=== PATIENT | male | born 1955 | race Caucasian/White ===

== ENCOUNTER → 2023-08-13 08:29 | Outpatient (REF) | payer OTHER, SELFPAY | LOC: RAD 08:29 | PROVIDERS: ATTENDING PHYSICIAN Family Medicine | DX: M54.16 Radiculopathy, lumbar region (principal) | CPT/HCPCS: 72110 ==

== ENCOUNTER → 2023-08-27 07:43 | Outpatient (REF) | payer OTHER, SELFPAY | LOC: MRI 3T 07:43 | PROVIDERS: ATTENDING PHYSICIAN Family Medicine | DX: M54.16 Radiculopathy, lumbar region (principal) | CPT/HCPCS: 72148 ==

== ENCOUNTER → 2024-07-27 07:09 | Outpatient (REF) | payer OTHER, SELFPAY | LOC: RAD 07:09 | PROVIDERS: ATTENDING PHYSICIAN Internal Medicine Cardiovascular Disease; FAMILY PHYSICIAN Family Medicine | DX: I25.10 Atherosclerotic heart disease of native coronary artery without angina pectoris (principal) | CPT/HCPCS: 93922; 93925 ==

== ENCOUNTER → 2024-08-03 14:40 | Outpatient (REF) | payer OTHER, SELFPAY | LOC: RCS 14:40 | PROVIDERS: ATTENDING PHYSICIAN Internal Medicine Cardiovascular Disease; FAMILY PHYSICIAN Family Medicine | DX: I25.10 Atherosclerotic heart disease of native coronary artery without angina pectoris (principal) | CPT/HCPCS: 93306 ==

== ENCOUNTER → 2024-08-06 07:18 | Outpatient (REF) | payer OTHER, SELFPAY | LOC: HWRCS 07:18 | PROVIDERS: ATTENDING PHYSICIAN Internal Medicine Cardiovascular Disease; FAMILY PHYSICIAN Family Medicine | DX: I25.10 Atherosclerotic heart disease of native coronary artery without angina pectoris (principal) | CPT/HCPCS: 78452; 93017; A9500; J2785 ==

== ENCOUNTER → 2024-08-24 13:34 | Outpatient (REF) | payer OTHER, SELFPAY | LOC: RCS 13:34 | PROVIDERS: ATTENDING PHYSICIAN Internal Medicine Cardiovascular Disease; FAMILY PHYSICIAN Family Medicine | DX: I25.10 Atherosclerotic heart disease of native coronary artery without angina pectoris (principal) | CPT/HCPCS: 93017 ==

== ENCOUNTER 2024-09-04 09:36 | Day surgery (SDC) | payer OTHER, SELFPAY ==
[2024-09-04] VITALS (16 sets, daily range): BP systolic 124–184; BP diastolic 53–84; BMI 33.3
--- NOTE | 2024-09-04 08:23 | ITS.CL.CATH ---
Neuropsychology Director - Catheterization
Cardiac Catheterization
Procedure Report:
LEFT HEART CATHETERIZATION
Date of Procedure: September 04, 2024
Referring: Johny Galvan
PROCEDURES:
1. Left heart catheterization, coronary angiogram.
2. Selective graft angiography.
3. Ultrasound-guided access
4. Successful percutaneous coronary artery intervention of a hazy 80% ostial to proximal saphenous vein graft stenosis with one 2.75 x 18 mm Medtronic Sophia drug-eluting stent, postdilated with a 2.75 x 12 mm NC balloon at 16 thalia with an excellent
angiographic result.
INDICATION: Abnormal stress test
ACCESS: Bilateral radial arteries, 6 Tristanian sheath, under ultrasound guidance
Ultrasound was utilized for vascular access. The right and left radial artery was visualized under ultrasound, and the vessel was patent and pulsatile. An image was stored permanently in the patient's medical record. Under direct ultrasound
guidance, a 6 Tristanian sheath was inserted into the arteries using a micropuncture kit through a modified Seldinger technique.
HEMODYNAMICS : (mmHg)
AO (s/d) : 124/62
LV (s/d) : 124/7
LVEDP : 21
CORONARY FINDINGS
Dominance: Right
LEFT MAIN: Normal
LEFT ANTERIOR DESCENDING: The LAD arises normally from the left main and runs in the anterior intraventricular groove. The proximal LAD has a subtotal occlusion with mid to distal LAD being filled by a patent BARKSDALE graft.. The mid LAD beyond the
BARKSDALE anastomosis has a 60-70% stenosis
RAMUS: The ramus intermedius branch is a medium caliber vessel with a 80% proximal stenosis which is new compared to prior heart catheterization. Staged PCI will be planned.
CIRCUMFLEX: The first obtuse marginal branch is 100% occluded but is the recipient of the SVG-OM. The SVG-OM1 has an 80% stenosis in its midportion.
RIGHT CORONARY ARTERY: The right coronary artery is 100% occluded proximally with the distal vessel filling via a ANOOP-RCA.
GRAFT ANATOMY:
1. BARKSDALE graft to LAD: The graft is widely patent. [place] mid LAD beyond the touchdown has a stable smooth 50-60% stable lesion just distal to the graft touchdown. Distal LAD has a smooth eccentric 40 to 50% stenosis.
2. ANOOP to RCA: The ANOOP graft has a bend right at the takeoff not allowing the SOFIYA catheter to sit into the os despite using right radial access. It is widely patent.
3. Saphenous vein graft to OM: There is a saphenous vein graft to a medium caliber obtuse marginal branch. There is a hazy 80% stenosis in the ostial to proximal portion. Mid LAD stent is widely patent. The distal portion of the SVG was mildly
degenerative just proximal to the touchdown filling a medium caliber obtuse marginal branch. We proceeded with intervention of the hazy 80% stenosis with details below.
CORONARY (SVG) INTERVENTION: Decision was made to proceed with intervention percutaneously to the hazy 80% stenosis in the ostial to proximal portion of the saphenous vein graft to the OM. Additional heparin was given to maintain a therapeutic ACT
throughout the case. We initially attempted selectively engaging with a 6 Tristanian AL 0.75 guide catheter. Unfortunately given the takeoff angle, despite multiple manipulations, we could not get the guide to seat well. We did attempt wiring the
lesion in the hopes that we could get the guide seated well however in the midst of getting good guide position to be able to lay out the lesion well, the wire and the guide prolapsed out of the vessel. We tried subsequently multiple different
guides including a 6 Tristanian JR 4, AR 1, hockey-stick with failure to selectively engage. At this point we decided to bring back the AL 0.75 guide and successfully wired with a 190 cm 0.014 BMW wire which was parked in the distal graft. We
attempted to bring in a 5.0 spider distal embolic protection device however given the ostial lesion we could not successfully advance this despite multiple attempts. At this point we decided to abort using a distal embolic protection device in the
setting of an ostial/proximal occlusive lesion. We predilated the lesion using a 2.0 x 10 mm semi-compliant balloon at 12 thalia. Subsequently we further predilated the lesion with a 2.75 x 10 mm semi-compliant balloon with good expansion. We
subsequently placed a 2.75 x 18 mm Medtronic Sophia drug-eluting stent. Given previously the mid portion of the graft had allowed for a 3.5 stent, we attempted to bring in a IVUS Traverse eye catheter to make sure that our stent was appropriately sized
before deciding on a postdilatation balloon however given poor guide support and the angulation of the graft, we could not successfully advance an IVUS catheter. We postdilated using a 2.75 x 12 mm NC balloon at 16 thalia with an excellent
angiographic result. The patient was loaded with 600 mg of Plavix at the end of the case. He tolerated the procedure well with no acute complications.
SEDATION: 153 minutes of procedural sedation was utilized. An independent medical coder was present to assist with and help manage the patient's level of consciousness and physiologic status.
RADIATION SUMMARY: Fluoro Time (min): 36.3, Dose (mGy): 2389.96, DAP (Gy.cm2) : 185.17
Closure Device: Vascular band over bilateral radial arteries, 10 cc of air.
CONCLUSIONS
1. Successful percutaneous coronary artery intervention of a hazy 80% ostial to proximal saphenous vein graft stenosis with one 2.75 x 18 mm Medtronic Sophia drug-eluting stent, postdilated with a 2.75 x 12 mm NC balloon at 16 thalia with an excellent
angiographic result.
2. The ramus intermedius branch is a medium caliber vessel with a 80% proximal stenosis which is new compared to prior heart catheterization. Staged PCI will be planned.
3. Elevated LVEDP at 21 mmHg
RECOMMENDATIONS
1. Wean radial band per protocol.
2. Dual antiplatelet therapy with daily baby aspirin and Plavix 75 mg daily along with high intensity statin and beta-josh as tolerated.
3. Aggressive management of cardiovascular risk factors.
4. Plan for staged PCI to ramus intermedius artery in the next 2 weeks.
5. Referral for outpatient cardiac rehab.
Copy to: Johny Galvan MD (cardiology), Shmuel Schwartz (PCP)
Saige Kimble MD, FACC, [facility]
[2024-09-04 09:56] LABS: Hematocrit 34.1 % (39.0-52.0); Hemoglobin 11.5 g/dL (13.0-18.0); Mean Corp Hgb Conc. 33.7 g/dL (33.0-37.0); Mean Corpuscular Hgb 29.3 pg (27.0-31.0); Mean Platelet Volume 11.1 fL (7.4-10.4); Platelet Count 144 10^3/uL (130-400); Red Blood Cell Count 3.92 10^6/uL (4.70-6.10); Red Cell Dist. Width 13.8 % (11.5-14.5); White Blood Cell Count 7.5 10^3/uL (4.8-10.8)
[2024-09-04] MEDS: NSS 281 ML IV (10:33)
[2024-09-04] MEDS: LOW STRENGTH ASPIRIN 81 MG PO (10:36)
[2024-09-04 10:41] LABS: Glucose - Point of Care 91 mg/dl (70-99)
[2024-09-04 13:47] LABS: ACT-LR - POC 265 Seconds (116-155)
[2024-09-04 13:58] LABS: ACT-LR - POC 269 Seconds (116-155)
[2024-09-04 14:07] LABS: ACT-LR - POC 271 Seconds (116-155)
[2024-09-04 14:08] LABS: ACT-LR - POC 277 Seconds (116-155)
[2024-09-04 14:24] LABS: ACT-LR - POC 269 Seconds (116-155)
[2024-09-04 14:24] LABS: ACT-LR - POC 274 Seconds (116-155)
[2024-09-04 14:33] LABS: ACT-LR - POC 302 Seconds (116-155)
[2024-09-04 14:46] LABS: ACT-LR - POC 300 Seconds (116-155)
[2024-09-04] MEDS: LASIX 20 MG IV (15:15)
--- NOTE | 2024-09-04 16:48 | W.PN.UPDATE ---
Update Note
Progress Note Update
69 yo WM s/p PCI VG to OM (same day). He denies cp, sob, rose diet, b/l TR bands intact, no HT, EKG SR no new ST changes. He will be on DAPT ASA/Plavix. He has residual Ramus disease and will return in 1-2 weeks for staged intervention. His LVEDP was
21 and he got lasix 20mg iv and will continue PO lasix daily with BMP in 1 week. Cardiac rehab c/s to start after next intervention. Activity restrictions reviewed. He will f/u in2-4 weeks. He is for d/c home after 730p if rad sites stable.
[2024-09-04] MEDS: DIOVAN 160 MG PO (17:19)
[2024-09-05 10:54] LABS: ACT-LR - POC 253 Seconds (116-155)
== END 2024-09-04 19:30 | disposition home or self-care (01) ==
LOC: CATH 09:36
PROVIDERS: ATTENDING PHYSICIAN Internal Medicine Interventional Cardiology; FAMILY PHYSICIAN Family Medicine; OTHER PHYSICIAN Internal Medicine Cardiovascular Disease
DX: I25.10 Atherosclerotic heart disease of native coronary artery without angina pectoris (principal); R94.39 Abnormal result of other cardiovascular function study; I25.810 Atherosclerosis of coronary artery bypass graft(s) without angina pectoris; Z95.1 Presence of aortocoronary bypass graft; Z79.02 Long term (current) use of antithrombotics/antiplatelets; Z79.82 Long term (current) use of aspirin
CPT/HCPCS: 76937; 82962; 85027; 85347; 93005; 93459; 99152; 99153; C1725; C1753; C1769; C1874; C1884; C1887; C1894; C9604; Q9967

== ENCOUNTER 2024-09-14 06:19 | Day surgery (SDC) | payer OTHER, SELFPAY ==
[2024-09-14] VITALS (16 sets, daily range): BP systolic 105–140; BP diastolic 53–61; BMI 33.1
[2024-09-14] MEDS: LOW STRENGTH ASPIRIN 81 MG PO (07:28)
[2024-09-14 07:42] LABS: Hemoglobin 10.8 g/dL (13.0-18.0); Mean Corp Hgb Conc. 33.8 g/dL (33.0-37.0); Mean Corpuscular Hgb 28.8 pg (27.0-31.0); Mean Corpuscular Volume 85.3 fL (80.0-94.0); Mean Platelet Volume 11.1 fL (7.4-10.4); Platelet Count 149 10^3/uL (130-400); Red Blood Cell Count 3.75 10^6/uL (4.70-6.10); Red Cell Dist. Width 13.7 % (11.5-14.5); White Blood Cell Count 5.4 10^3/uL (4.8-10.8)
[2024-09-14] MEDS: NSS 279 ML IV (07:50)
[2024-09-14 07:56] LABS: Blood Urea Nitrogen 24 mg/dl (9-20); Calcium 9.3 mg/dl (8.4-10.2); Carbon Dioxide 26 mmol/L (22-30); Chloride 106 mmol/L (98-107); Estimated Creatinine Clearance 56 ml/min; Glucose 97 mg/dl (70-99); Potassium 4.2 mmol/L (3.5-5.1); Sodium 139 mmol/L (135-145); eGFR 58.73
[2024-09-14 08:55] LABS: ACT-LR - POC 276 Seconds (116-155)
[2024-09-14 09:18] LABS: ACT-LR - POC 269 Seconds (116-155)
[2024-09-14 09:32] LABS: ACT-LR - POC 298 Seconds (116-155)
[2024-09-14 09:56] LABS: ACT-LR - POC 295 Seconds (116-155)
--- NOTE | 2024-09-14 10:14 | ITS.CL.CATH ---
Utilization Management Manager - Catheterization
Cardiac Catheterization
Procedure Report:
LEFT HEART CATHETERIZATION and CORONARY INTERVENTION
Date of Procedure: September 04, 2024
Referring: Johny Galvan
PROCEDURES:
1. Selective left coronary angiogram and left heart catheterization
2. Ultrasound-guided access
3. Successful percutaneous coronary artery intervention of a hazy 80-90% ostial ramus intermedius stenosis with one 2.5 x 12 mm Medtronic Allen drug-eluting stent, postdilated with a 3.0 x 8 mm NC balloon at 20 thalia with an excellent angiographic
result.
4. Attempted intravascular ultrasound (IVUS)
INDICATION: Plan staged PCI to ostial ramus branch
ACCESS: Left radial arteries, 6 Turkish sheath, under ultrasound guidance
Ultrasound was utilized for vascular access. The right and left radial artery was visualized under ultrasound, and the vessel was patent and pulsatile. An image was stored permanently in the patient's medical record. Under direct ultrasound
guidance, a 6 Turkish sheath was inserted into the arteries using a micropuncture kit through a modified Seldinger technique.
HEMODYNAMICS : (mmHg)
AO (s/d) : 103/48
LV (s/d) : 104/5
LVEDP : 15
CORONARY FINDINGS
Dominance: Right
LEFT MAIN: Normal
LEFT ANTERIOR DESCENDING: The LAD arises normally from the left main and runs in the anterior intraventricular groove. The proximal LAD has a subtotal occlusion with mid to distal LAD being filled by a patent BARKSDALE graft.. The mid LAD beyond the
BARKSDALE anastomosis has a 60-70% stenosis
RAMUS: The ramus intermedius branch is a medium caliber vessel with a 80% proximal stenosis which is new compared to prior heart catheterization. Staged PCI will be planned.
CIRCUMFLEX: The first obtuse marginal branch is 100% occluded but is the recipient of the SVG-OM. The SVG-OM1 has an 80% stenosis in its midportion.
RIGHT CORONARY ARTERY: The right coronary artery is 100% occluded proximally with the distal vessel filling via a ANOOP-RCA.
GRAFT ANATOMY:
1. BARKSDALE graft to LAD: The graft is widely patent. [place] mid LAD beyond the touchdown has a stable smooth 50-60% stable lesion just distal to the graft touchdown. Distal LAD has a smooth eccentric 40 to 50% stenosis.
2. ANOOP to RCA: The ANOOP graft has a bend right at the takeoff not allowing the SOFIYA catheter to sit into the os despite using right radial access. It is widely patent.
3. Saphenous vein graft to OM: There is a saphenous vein graft to a medium caliber obtuse marginal branch. There is a hazy 80% stenosis in the ostial to proximal portion. Mid LAD stent is widely patent. The distal portion of the SVG was mildly
degenerative just proximal to the touchdown filling a medium caliber obtuse marginal branch. We proceeded with intervention of the hazy 80% stenosis with details below.
CORONARY (ramus intermedius) INTERVENTION: Additional heparin was given to maintain a therapeutic ACT throughout the case.
SEDATION: 100 minutes of procedural sedation was utilized. An independent medical laboratory scientist was present to assist with and help manage the patient's level of consciousness and physiologic status.
RADIATION SUMMARY: Fluoro Time (min): 25 point, Dose (mGy): 931.24, DAP (Gy.cm2) : 63.03
Closure Device: Vascular band over bilateral radial arteries, 10 cc of air.
CONCLUSIONS
1. Successful percutaneous coronary artery intervention of a hazy 80-90% ostial ramus intermedius stenosis with one 2.5 x 12 mm Medtronic Allen drug-eluting stent, postdilated with a 3.0 x 8 mm NC balloon at 20 thalia with an excellent angiographic
result.
2. High normal LVEDP at 15 mmHg.
RECOMMENDATIONS
1. Wean radial band per protocol.
2. Dual antiplatelet therapy with daily baby aspirin and Plavix 75 mg daily along with high intensity statin and beta-josh as tolerated. Discontinue Lasix.
3. Aggressive management of cardiovascular risk factors.
4. Referral for outpatient cardiac rehab.
Copy to: Johny Galvan MD (cardiology), Shmuel Schwartz (PCP)
Saige Kimble MD, FACC, [facility]
--- NOTE | 2024-09-14 14:41 | W.PN.UPDATE ---
Update Note
Progress Note Update
69 yo WM s/p PCI Ramus artery x1 (same day). He denies cp, sob, rose diet, voiding, amb w/o dizziness, L rad site c/d/i no HT, mild ecchymosis, EKG SR no ST changes. He will be on DAPT ASA/Plavix. Cardiac rehab c/s. Activity restrictions reviewed. He
will f/u [facility] in 2-4 weeks. He is for d/c home after 3pm if rad site stable.
== END 2024-09-14 15:05 | disposition home or self-care (01) ==
LOC: CATH 06:19
PROVIDERS: Nurse Practitioner Adult Health; ATTENDING PHYSICIAN Internal Medicine Interventional Cardiology; FAMILY PHYSICIAN Family Medicine; OTHER PHYSICIAN Internal Medicine Cardiovascular Disease
DX: I25.10 Atherosclerotic heart disease of native coronary artery without angina pectoris (principal); I12.9 Hypertensive chronic kidney disease with stage 1 through stage 4 chronic kidney disease, or unspecified chronic kidney disease; E11.22 Type 2 diabetes mellitus with diabetic chronic kidney disease; N18.31 Chronic kidney disease, stage 3a; Z95.5 Presence of coronary angioplasty implant and graft; E78.00 Pure hypercholesterolemia, unspecified; G47.33 Obstructive sleep apnea (adult) (pediatric); Z87.891 Personal history of nicotine dependence; Z79.82 Long term (current) use of aspirin; Z79.84 Long term (current) use of oral hypoglycemic drugs; Z79.4 Long term (current) use of insulin; Z79.85 Long-term (current) use of injectable non-insulin antidiabetic drugs; Z79.02 Long term (current) use of antithrombotics/antiplatelets
CPT/HCPCS: 99152; 99153; C1725; C1894; C1753; C1874; 76937; 80048; 85027; 85347; 93005; 93459; C1769; C9600; Q9967

== ENCOUNTER → 2024-09-21 11:20 | Outpatient (REF) | payer OTHER, SELFPAY ==
[2024-09-21 12:26] LABS: Blood Urea Nitrogen 23 mg/dl (9-20); Calcium 9.7 mg/dl (8.4-10.2); Carbon Dioxide 27 mmol/L (22-30); Chloride 105 mmol/L (98-107); Glucose 90 mg/dl (70-99); Potassium 4.9 mmol/L (3.5-5.1); Sodium 141 mmol/L (135-145); eGFR 53.74
== END ==
LOC: REG 11:20
PROVIDERS: ATTENDING PHYSICIAN Nurse Practitioner Adult Health; FAMILY PHYSICIAN Family Medicine; REFERRING PHYSICIAN Internal Medicine Cardiovascular Disease
DX: N18.31 Chronic kidney disease, stage 3a (principal)
CPT/HCPCS: 36415; 80048

== ENCOUNTER 2024-10-08 12:07 | Outpatient (RCR) | payer OTHER, SELFPAY ==
[2024-09-27 13:46] LABS: Glucose - Point of Care 97 mg/dl (70-99)
[2024-09-27 13:53] LABS: Glucose - Point of Care 99 mg/dl (70-99)
[2024-09-27 14:13] LABS: Glucose - Point of Care 133 mg/dl (70-99)
[2024-09-27 14:28] LABS: Glucose - Point of Care 139 mg/dl (70-99)
[2024-10-01 11:13] LABS: Glucose - Point of Care 93 mg/dl (70-99)
[2024-10-01 11:47] LABS: Glucose - Point of Care 87 mg/dl (70-99)
[2024-10-01 12:03] LABS: Glucose - Point of Care 87 mg/dl (70-99)
[2024-10-01 12:20] LABS: Glucose - Point of Care 115 mg/dl (70-99)
[2024-10-03 10:58] LABS: Glucose - Point of Care 106 mg/dl (70-99)
[2024-10-05 10:52] LABS: Glucose - Point of Care 113 mg/dl (70-99)
[2024-10-05 11:53] LABS: Glucose - Point of Care 109 mg/dl (70-99)
[2024-10-08 10:53] LABS: Glucose - Point of Care 111 mg/dl (70-99)
[2024-10-08 11:45] LABS: Glucose - Point of Care 94 mg/dl (70-99)
[2024-10-08 11:57] LABS: Glucose - Point of Care 92 mg/dl (70-99)
[2024-10-08 12:06] LABS: Glucose - Point of Care 112 mg/dl (70-99)
== END 2024-10-08 23:59 | disposition home or self-care (01) ==
LOC: CRHB 12:07
PROVIDERS: ATTENDING PHYSICIAN Internal Medicine Cardiovascular Disease; FAMILY PHYSICIAN Family Medicine
DX: I25.10 Atherosclerotic heart disease of native coronary artery without angina pectoris (principal); Z95.5 Presence of coronary angioplasty implant and graft
CPT/HCPCS: 82962; G0422; G0423

== ENCOUNTER 2024-11-07 11:32 | Outpatient (RCR) | payer OTHER, SELFPAY ==
[2024-10-10 10:53] LABS: Glucose - Point of Care 125 mg/dl (70-99)
[2024-10-10 11:49] LABS: Glucose - Point of Care 87 mg/dl (70-99)
[2024-10-10 12:06] LABS: Glucose - Point of Care 93 mg/dl (70-99)
[2024-10-17 10:56] LABS: Glucose - Point of Care 126 mg/dl (70-99)
[2024-10-17 11:52] LABS: Glucose - Point of Care 86 mg/dl (70-99)
[2024-10-17 12:10] LABS: Glucose - Point of Care 118 mg/dl (70-99)
[2024-10-19 10:58] LABS: Glucose - Point of Care 110 mg/dl (70-99)
[2024-10-19 11:52] LABS: Glucose - Point of Care 105 mg/dl (70-99)
[2024-10-22 11:18] LABS: Glucose - Point of Care 126 mg/dl (70-99)
[2024-10-22 12:13] LABS: Glucose - Point of Care 115 mg/dl (70-99)
[2024-10-24 10:56] LABS: Glucose - Point of Care 144 mg/dl (70-99)
[2024-10-24 11:57] LABS: Glucose - Point of Care 105 mg/dl (70-99)
[2024-10-26 14:36] LABS: Glucose - Point of Care 91 mg/dl (70-99)
[2024-10-26 14:54] LABS: Glucose - Point of Care 98 mg/dl (70-99)
[2024-10-29 11:00] LABS: Glucose - Point of Care 118 mg/dl (70-99)
[2024-10-29 12:10] LABS: Glucose - Point of Care 105 mg/dl (70-99)
[2024-10-31 11:11] LABS: Glucose - Point of Care 107 mg/dl (70-99)
[2024-10-31 12:08] LABS: Glucose - Point of Care 106 mg/dl (70-99)
[2024-11-05 11:06] LABS: Glucose - Point of Care 130 mg/dl (70-99)
[2024-11-05 12:03] LABS: Glucose - Point of Care 124 mg/dl (70-99)
[2024-11-07 11:11] LABS: Glucose - Point of Care 99 mg/dl (70-99)
[2024-11-07 11:30] LABS: Glucose - Point of Care 112 mg/dl (70-99)
[2024-11-07 12:09] LABS: Glucose - Point of Care 84 mg/dl (70-99)
[2024-11-07 12:23] LABS: Glucose - Point of Care 104 mg/dl (70-99)
== END 2024-11-07 23:59 | disposition home or self-care (01) ==
LOC: CRHB 11:32
PROVIDERS: ATTENDING PHYSICIAN Internal Medicine Cardiovascular Disease; FAMILY PHYSICIAN Family Medicine
DX: I25.10 Atherosclerotic heart disease of native coronary artery without angina pectoris (principal); Z95.5 Presence of coronary angioplasty implant and graft
CPT/HCPCS: 82962; G0422; G0423

== ENCOUNTER 2024-12-07 11:52 | Outpatient (RCR) | payer OTHER, SELFPAY ==
[2024-11-09 11:03] LABS: Glucose - Point of Care 130 mg/dl (70-99)
[2024-11-09 11:51] LABS: Glucose - Point of Care 90 mg/dl (70-99)
[2024-11-09 12:09] LABS: Glucose - Point of Care 117 mg/dl (70-99)
[2024-11-16 10:54] LABS: Glucose - Point of Care 125 mg/dl (70-99)
[2024-11-16 11:47] LABS: Glucose - Point of Care 105 mg/dl (70-99)
[2024-11-19 11:06] LABS: Glucose - Point of Care 122 mg/dl (70-99)
[2024-11-19 11:56] LABS: Glucose - Point of Care 105 mg/dl (70-99)
[2024-11-21 10:57] LABS: Glucose - Point of Care 98 mg/dl (70-99)
[2024-11-21 11:56] LABS: Glucose - Point of Care 88 mg/dl (70-99)
[2024-11-21 12:12] LABS: Glucose - Point of Care 87 mg/dl (70-99)
[2024-11-21 12:12] LABS: Glucose - Point of Care 99 mg/dl (70-99)
[2024-11-23 10:55] LABS: Glucose - Point of Care 100 mg/dl (70-99)
[2024-11-23 11:49] LABS: Glucose - Point of Care 94 mg/dl (70-99)
[2024-11-23 12:04] LABS: Glucose - Point of Care 111 mg/dl (70-99)
[2024-11-26 10:54] LABS: Glucose - Point of Care 126 mg/dl (70-99)
[2024-11-26 11:53] LABS: Glucose - Point of Care 101 mg/dl (70-99)
[2024-11-28 10:55] LABS: Glucose - Point of Care 134 mg/dl (70-99)
[2024-11-28 12:00] LABS: Glucose - Point of Care 100 mg/dl (70-99)
[2024-11-30 10:49] LABS: Glucose - Point of Care 135 mg/dl (70-99)
[2024-11-30 12:00] LABS: Glucose - Point of Care 105 mg/dl (70-99)
[2024-12-05 10:54] LABS: Glucose - Point of Care 135 mg/dl (70-99)
[2024-12-05 11:55] LABS: Glucose - Point of Care 96 mg/dl (70-99)
[2024-12-07 10:55] LABS: Glucose - Point of Care 149 mg/dl (70-99)
[2024-12-07 11:36] LABS: Glucose - Point of Care 84 mg/dl (70-99)
[2024-12-07 11:53] LABS: Glucose - Point of Care 100 mg/dl (70-99)
== END 2024-12-07 23:59 | disposition home or self-care (01) ==
LOC: CRHB 11:52
PROVIDERS: ATTENDING PHYSICIAN Internal Medicine Cardiovascular Disease; FAMILY PHYSICIAN Family Medicine
DX: I25.10 Atherosclerotic heart disease of native coronary artery without angina pectoris (principal); Z95.5 Presence of coronary angioplasty implant and graft
CPT/HCPCS: 82962; G0422; G0423

== ENCOUNTER 2025-01-07 11:50 | Outpatient (RCR) | payer OTHER, SELFPAY ==
[2024-12-10 11:09] LABS: Glucose - Point of Care 146 mg/dl (70-99)
[2024-12-10 12:18] LABS: Glucose - Point of Care 97 mg/dl (70-99)
[2024-12-14 10:54] LABS: Glucose - Point of Care 119 mg/dl (70-99)
[2024-12-14 11:53] LABS: Glucose - Point of Care 131 mg/dl (70-99)
[2024-12-17 11:09] LABS: Glucose - Point of Care 131 mg/dl (70-99)
[2024-12-17 12:11] LABS: Glucose - Point of Care 91 mg/dl (70-99)
[2024-12-17 12:36] LABS: Glucose - Point of Care 111 mg/dl (70-99)
[2024-12-19 10:58] LABS: Glucose - Point of Care 101 mg/dl (70-99)
[2024-12-19 11:50] LABS: HDL Cholesterol 36 mg/dl; LDL Cholesterol, Calculated 43 mg/dl; Total Cholesterol 106 mg/dl (50-199); Triglyceride 137 mg/dl (10-149); Very Low Density Lipoprotein 27 mg/dl (0-30)
[2024-12-19 12:02] LABS: Glucose - Point of Care 89 mg/dl (70-99)
[2024-12-19 12:15] LABS: Glucose - Point of Care 111 mg/dl (70-99)
[2024-12-24 11:13] LABS: Glucose - Point of Care 124 mg/dl (70-99)
[2024-12-24 12:04] LABS: Glucose - Point of Care 125 mg/dl (70-99)
[2024-12-26 10:57] LABS: Glucose - Point of Care 140 mg/dl (70-99)
[2024-12-26 11:53] LABS: Glucose - Point of Care 109 mg/dl (70-99)
[2024-12-28 10:53] LABS: Glucose - Point of Care 151 mg/dl (70-99)
[2024-12-28 11:53] LABS: Glucose - Point of Care 97 mg/dl (70-99)
[2024-12-31 13:06] LABS: Glucose - Point of Care 131 mg/dl (70-99)
[2024-12-31 14:10] LABS: Glucose - Point of Care 107 mg/dl (70-99)
[2025-01-04 10:58] LABS: Glucose - Point of Care 140 mg/dl (70-99)
[2025-01-04 11:58] LABS: Glucose - Point of Care 101 mg/dl (70-99)
[2025-01-07 10:57] LABS: Glucose - Point of Care 147 mg/dl (70-99)
== END 2025-01-07 23:59 | disposition home or self-care (01) ==
LOC: CRHB 11:50
PROVIDERS: ATTENDING PHYSICIAN Internal Medicine Cardiovascular Disease; FAMILY PHYSICIAN Family Medicine
DX: I25.10 Atherosclerotic heart disease of native coronary artery without angina pectoris (principal); Z95.5 Presence of coronary angioplasty implant and graft
CPT/HCPCS: 36415; 80061; 82962; G0422; G0423

== ENCOUNTER → 2025-06-25 20:16 | Outpatient (REF) | payer OTHER, SELFPAY | LOC: PAVMRI 20:16 | PROVIDERS: ATTENDING PHYSICIAN Physician Assistant Surgical; FAMILY PHYSICIAN Family Medicine | DX: M48.062 Spinal stenosis, lumbar region with neurogenic claudication (principal); M54.50 Low back pain, unspecified; M54.16 Radiculopathy, lumbar region; Z98.1 Arthrodesis status | CPT/HCPCS: 72148 ==